=== PATIENT | male | born 2000 | race Caucasian/White ===

== ENCOUNTER 2024-02-01 17:04 | Inpatient (IN) | payer OTHER ==
[~2024-02-01] VITALS: Ht 170.2 cm; Wt 66.7 kg
[2024-02-01] MEDS ORDERED: POLYETHYLENE GLYCOL 3350 17 GM PACKET PO PRN (19:00)
[2024-02-01 19:59] VITALS: BP 135/69; PULSE 83; RESP 18; TEMP 98.8; O2SAT 98
[2024-02-01] MEDS: GABAPENTIN 300 MG CAPSULE PO SCH (20:05)
[2024-02-01] MEDS: ETHYL ALCOHOL 62% ANTISEPTIC NASAL SANITIZER 0.6 ML AMPUL NASAL SCH (20:05)
[2024-02-01] MEDS: METHOCARBAMOL 500 MG TABLET PO SCH (20:08)
[2024-02-01] MEDS: OxyCODONE HCL 5 MG IR TABLET PO PRN (20:08)
[2024-02-01] MEDS: LACTULOSE 20 GM/30 ML SOLUTION UDCUP PO SCH (20:08)
[2024-02-01] MEDS: SENNOSIDES 8.6 MG TABLET PO SCH (20:09)
[2024-02-01] MEDS: DOCUSATE SODIUM 100 MG CAPSULE PO SCH (20:09)
[2024-02-01] MEDS: MELATONIN 5 MG TABLET PO PRN (22:59)
[2024-02-01] MEDS: HEPARIN SODIUM,PORCINE 5,000 UNITS/ML VIAL SQ SCH (23:00)
[2024-02-02 00:32] VITALS: O2SAT 98
[2024-02-02] MEDS: OxyCODONE HCL 10 MG IR TABLET PO PRN (01:35)
[2024-02-02 07:46] LABS: BASOPHILS % (AUTO) 0.5 % (0.0-2.0); EOSINOPHILS % (AUTO) 1.3 % (1.0-6.0); HEMATOCRIT 37.8 % (41-53); HEMOGLOBIN 13.5 g/dL (13.5-17.5); LYMPHOCYTES # (AUTO) 1.7 K/uL (1.0-4.8); LYMPHOCYTES % (AUTO) 15.8 % (22.0-44.0); MEAN CORPUSCULAR HEMOGLOBIN 32.3 pg (26.0-34.0); MEAN CORPUSCULAR HGB CONC 35.8 G/dL (31.0-37.0); MEAN CORPUSCULAR VOLUME 90 fL (80-100); MONOCYTES # (AUTO) 1.7 K/uL (0.1-1.0); MONOCYTES % (AUTO) 16.4 % (2.0-9.0); PLATELET COUNT (AUTO) 289 K/uL (150-450); RED BLOOD CELL COUNT(AUTO) 4.18 MIL/uL (4.50-5.90); RED CELL DISTRIBUTION WIDTH 13.6 % (11.5-14.5); WHITE BLOOD COUNT (AUTO) 10.7 K/uL (4.5-11.0)
[2024-02-02 08:00] VITALS: BP 135/65; PULSE 82; RESP 19; TEMP 98.4; O2SAT 98
[2024-02-02 08:00] LABS: ALANINE AMINOTRANSFERASE 224 U/L (12-78); ALBUMIN 2.9 g/dL (3.4-5.0); ALKALINE PHOSPHATASE 506 U/L (46-116); ANION GAP 7 mmol/L (8-16); ASPARTATE AMINOTRANSFERASE 114 U/L (15-37); BILIRUBIN,TOTAL 1.9 mg/dL (0.1-1.0); CALCIUM, TOTAL 8.7 mg/dL (8.8-10.5); CARBON DIOXIDE 27 mmol/L (22-29); CHLORIDE 96 mmol/L (98-107); CREATININE 0.82 mg/dL (0.60-1.30); GLOMERULAR FILTR. RATE CALC > 60 mL/min (>60); GLUCOSE,RANDOM 114 mg/dL (70-110); POTASSIUM 4.4 mmol/L (3.5-5.1); SODIUM SERUM 130 mmol/L (136-145); TOTAL PROTEIN, SERUM 7.9 g/dL (6.4-8.2); UREA NITROGEN, BLOOD 15 mg/dL (7-18)
[2024-02-02] MEDS: FLUoxetine HCL 20 MG CAPSULE PO SCH (08:39)
[2024-02-02 11:26] VITALS: O2SAT 98
[2024-02-02] MEDS: LIDOCAINE 5% TRANSDERMAL PATCH TD SCH (14:40)
[2024-02-02 20:05] VITALS: BP 128/67; PULSE 86; RESP 18; TEMP 98.7; O2SAT 100
[2024-02-02] MEDS: OxyCODONE HCL 10 MG ER TABLET PO SCH (21:20)
[2024-02-02] MEDS: -LIDODERM PATCH NOTE- MISC SCH (21:20)
[2024-02-02 22:15] VITALS: O2SAT 100
[2024-02-03 08:01] VITALS: BP 118/56; PULSE 77; RESP 19; TEMP 98.4; O2SAT 99
[2024-02-03 10:14] VITALS: O2SAT 99
[2024-02-03 21:00] VITALS: BP 123/52; PULSE 78; RESP 19; TEMP 98.5; O2SAT 99
[2024-02-03 23:32] VITALS: O2SAT 99
[2024-02-04 08:02] VITALS: BP 108/77; PULSE 82; RESP 19; TEMP 98.7; O2SAT 99
[2024-02-04 20:46] VITALS: BP 123/62; PULSE 80; RESP 19; TEMP 98.5; O2SAT 97
[2024-02-04 20:54] VITALS: O2SAT 97
[2024-02-05] MEDS ORDERED: FLUO20SO24 PO (05:02)
[2024-02-05 08:05] VITALS: BP 119/68; PULSE 85; RESP 20; TEMP 98.9; O2SAT 98
[2024-02-05 20:10] VITALS: BP 119/65; PULSE 95; RESP 18; TEMP 98.5; O2SAT 97
[2024-02-05 23:46] VITALS: O2SAT 97
[2024-02-06 08:01] VITALS: BP 121/61; PULSE 60; RESP 19; TEMP 98.9; O2SAT 98
[2024-02-06 20:48] VITALS: BP 121/58; PULSE 77; RESP 18; TEMP 97.5; O2SAT 99
[2024-02-06 22:23] VITALS: O2SAT 98
[2024-02-07 08:00] VITALS: BP 107/62; PULSE 82; RESP 18; TEMP 98.4; O2SAT 98
[2024-02-07 14:30] VITALS: BP 123/61; PULSE 77
[2024-02-07 14:32] VITALS: BP 111/73; PULSE 83
[2024-02-07 14:40] VITALS: BP_SYST 110; BP_SYST 92; BP_DIAS 37; BP_DIAS 56; PULSE 103; PULSE 109
[2024-02-07 20:08] VITALS: BP 124/68; PULSE 90; RESP 18; TEMP 98.2; O2SAT 98
[2024-02-07 22:09] VITALS: O2SAT 98
[2024-02-08 08:15] VITALS: BP 106/63; PULSE 63; RESP 19; TEMP 98.1; O2SAT 97
[2024-02-08 13:24] VITALS: O2SAT 97
[2024-02-08 20:00] VITALS: BP 115/55; PULSE 81; RESP 18; TEMP 98.3; O2SAT 97
[2024-02-08 22:51] VITALS: O2SAT 97
[2024-02-09 08:05] VITALS: BP 121/53; PULSE 61; RESP 19; TEMP 97.8; O2SAT 97
[2024-02-09 10:41] VITALS: O2SAT 97
[2024-02-09 20:00] VITALS: BP 99/52; PULSE 73; RESP 18; TEMP 98.3; O2SAT 99
[2024-02-09 20:45] VITALS: BP 106/69; PULSE 85; RESP 18; O2SAT 99
[2024-02-09 21:17] VITALS: O2SAT 99
[2024-02-10 08:00] VITALS: BP 108/61; PULSE 71; RESP 19; TEMP 98.1; O2SAT 97
[2024-02-10 20:00] VITALS: BP_SYST 114; BP_SYST 134; BP_DIAS 62; BP_DIAS 63; PULSE 78; PULSE 81; RESP 20; TEMP 98; TEMP 98.3; O2SAT 100; O2SAT 98
[2024-02-11 08:00] VITALS: BP 111/52; PULSE 67; RESP 19; TEMP 98.1; O2SAT 98
[2024-02-11 13:01] VITALS: O2SAT 98
[2024-02-11 20:00] VITALS: BP 114/62; PULSE 78; RESP 20; TEMP 98.3; O2SAT 98
[2024-02-12 08:15] VITALS: BP 147/53; PULSE 71; RESP 19; TEMP 98.3; O2SAT 99
[2024-02-12 09:42] VITALS: O2SAT 99
[2024-02-12 19:50] VITALS: BP 115/55; PULSE 76; RESP 18; TEMP 98.4; O2SAT 97
[2024-02-12 22:04] VITALS: O2SAT 97
[2024-02-13 08:00] VITALS: BP 113/62; PULSE 63; RESP 18; TEMP 98.3; O2SAT 100
[2024-02-13 08:19] LABS: ALANINE AMINOTRANSFERASE 115 U/L (12-78); ALBUMIN 3.1 g/dL (3.4-5.0); ALKALINE PHOSPHATASE 263 U/L (46-116); ANION GAP 8 mmol/L (8-16); ASPARTATE AMINOTRANSFERASE 50 U/L (15-37); BILIRUBIN,TOTAL 0.6 mg/dL (0.1-1.0); CALCIUM, TOTAL 8.8 mg/dL (8.8-10.5); CARBON DIOXIDE 28 mmol/L (22-29); CHLORIDE 100 mmol/L (98-107); CREATININE 0.93 mg/dL (0.60-1.30); GLOMERULAR FILTR. RATE CALC > 60 mL/min (>60); GLUCOSE,RANDOM 98 mg/dL (70-110); POTASSIUM 4.1 mmol/L (3.5-5.1); SODIUM SERUM 136 mmol/L (136-145); TOTAL PROTEIN, SERUM 7.9 g/dL (6.4-8.2); UREA NITROGEN, BLOOD 15 mg/dL (7-18)
[2024-02-13] MEDS ORDERED: GABA-1181 PO (16:52)
[2024-02-13] MEDS ORDERED: ACET-2247 PO (16:52)
[2024-02-13] MEDS ORDERED: MELA5TAB40 PO (16:52)
[2024-02-13] MEDS ORDERED: SENN-376 PO (16:52)
[2024-02-13] MEDS ORDERED: POLY17PO47 PO (16:52)
[2024-02-13] MEDS ORDERED: LIDO700A15 TP (16:52)
[2024-02-13] MEDS ORDERED: DOCU-385 PO (16:52)
[2024-02-13] MEDS ORDERED: LACT10SO10 PO (16:52)
[2024-02-13] MEDS ORDERED: FLUO20CA36 PO (16:52)
[2024-02-13 20:00] VITALS: BP 104/64; PULSE 82; RESP 18; TEMP 98.1; O2SAT 98
[2024-02-13] MEDS: ACETAMINOPHEN 325 MG TABLET PO PRN (20:10)
[2024-02-13 23:52] VITALS: O2SAT 98
[2024-02-14 08:00] VITALS: BP 107/59; PULSE 59; RESP 19; TEMP 98.1; O2SAT 99
[2024-02-14] MEDS ORDERED: GABA-1181 PO (10:53)
[2024-02-14] MEDS ORDERED: LIDO700A30 TD (10:53)
[2024-02-14] MEDS ORDERED: ASPI-1444 PO (10:53)
[2024-02-14] MEDS ORDERED: FLUO20CA36 PO (10:53)
[2024-02-14] MEDS ORDERED: ACET325T51 PO (10:53)
== END 2024-02-14 11:45 | disposition home or self-care (01) | DRG 963 ==
LOC: 2WR 18:20
PROVIDERS: ADMIT Physical Medicine & Rehabilitation; ATTEND Physical Medicine & Rehabilitation
DX: S42.101A Fracture of unspecified part of scapula, right shoulder, initial encounter for closed fracture (principal); S72.301A Unspecified fracture of shaft of right femur, initial encounter for closed fracture; K65.9 Peritonitis, unspecified; S27.322A Contusion of lung, bilateral, initial encounter; K66.1 Hemoperitoneum; E87.1 Hypo-osmolality and hyponatremia; S52.92XA Unspecified fracture of left forearm, initial encounter for closed fracture; S52.202A Unspecified fracture of shaft of left ulna, initial encounter for closed fracture; E46 Unspecified protein-calorie malnutrition; S36.113A Laceration of liver, unspecified degree, initial encounter; F11.20 Opioid dependence, uncomplicated; S09.90XA Unspecified injury of head, initial encounter; K59.03 Drug induced constipation; T40.605A Adverse effect of unspecified narcotics, initial encounter; S42.102A Fracture of unspecified part of scapula, left shoulder, initial encounter for closed fracture; T40.2X5A Adverse effect of other opioids, initial encounter; F43.10 Post-traumatic stress disorder, unspecified; R74.01 Elevation of levels of liver transaminase levels; F32.A Depression, unspecified; R26.9 Unspecified abnormalities of gait and mobility; R41.3 Other amnesia; R53.81 Other malaise; M25.511 Pain in right shoulder; R20.2 Paresthesia of skin; V29.99XA Rider (driver) (passenger) of other motorcycle injured in unspecified traffic accident, initial encounter; Y93.89 Activity, other specified; Y92.89 Other specified places as the place of occurrence of the external cause; Y99.8 Other external cause status; Z68.23 Body mass index [BMI] 23.0-23.9, adult; Z90.49 Acquired absence of other specified parts of digestive tract; Z91.018 Allergy to other foods
CPT/HCPCS: 80053; 85025; 87081; 97110; 97112; 97116; 97140; 97150; 97163; 97167; 97530; 97535; 99366; J1644; Q9967